=== PATIENT | female | born 1930 | race Caucasian/White ===

== ENCOUNTER 2016-03-13 11:22 | Emergency (ER) | payer OTHER, MEDICARE ==
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
[2016-03-13 11:48] VITALS: RESP 16; TEMP 97.5; O2SAT 95
[2016-03-13 11:51] LABS: % IMMATURE GRANULYOCYTES 0.9 % (0.0-1.1); ABSOLUTE IMMATURE GRANULOCYTES 0.09 10^3/uL (0.00-0.10); ADD DIFF? NO; ADD MORPH? NO; ADD SCAN? NO; ATYPICAL LYMPHOCYTE FLAG 10 (0-99); FRAGMENT RBC FLAG 50 (0-99); HEMATOCRIT 42.7 % (38.0-47.0); HEMOGLOBIN 13.9 g/dL (12.6-16.3); LEFT SHIFT FLG 0 (0-99); LIPEMIA HEMOLYSIS FLAG 80 (0-99); MEAN CELL HEMOGLOBIN CONCENTR. 32.6 g/dL (32.4-36.7); MEAN PLATELET VOLUME 10.8 fL (8.7-11.7); PLATELET CLUMPS FLAG 0 (0-99); RED BLOOD CELL COUNT 4.64 10^6/uL (4.18-5.33); RED CELL DISTRIBUTION WIDTH 14.3 % (11.5-15.2)
[2016-03-13 11:54] LABS: PLATELET COUNT 790 10^3/uL (150-400)
[2016-03-13 11:58] LABS: INR 3.27 (0.83-1.16); PROTIME(PATIENT) 33.8 SEC (12.0-15.0)
[2016-03-13 12:07] LABS: CARBON DIOXIDE 29 mEq/l (22-31); CHLORIDE 103 mEq/L (97-110); POTASSIUM 4.5 mEq/L (3.5-5.2); SODIUM 139 mEq/L (134-144)
[2016-03-13 12:08] LABS: ALANINE AMINOTRANSFERASE 29 IU/L (9-52); ALBUMIN 3.7 g/dL (3.5-5.0); ALKALINE PHOSPHATASE 100 IU/L (38-126); ANION GAP 7 mEq/L (8-16); ASPARTATE AMINOTRANSFERASE 30 IU/L (14-46); BILIRUBIN,TOTAL 0.8 mg/dL (0.1-1.4); CALCIUM 9.1 mg/dL (8.5-10.4); CREATININE 0.8 mg/dL (0.6-1.0); GLOMERULAR FILTRATION RATE > 60; GLUCOSE 82 mg/dL (70-100); TOTAL PROTEIN 5.7 g/dL (6.3-8.2)
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
[2016-03-13 13:06] LABS: PLATELET ESTIMATE INCREASED (ADEQ)
[2016-03-13 14:05] VITALS: BP 144/75; PULSE 81
== END 2016-03-13 13:40 | disposition home or self-care (01) ==
DX: S00.03XA Contusion of scalp, initial encounter (principal); S50.12XA Contusion of left forearm, initial encounter; S50.11XA Contusion of right forearm, initial encounter; I10 Essential (primary) hypertension; Z79.01 Long term (current) use of anticoagulants; Z79.82 Long term (current) use of aspirin; V49.09XA Driver injured in collision with other motor vehicles in nontraffic accident, initial encounter; Y92.410 Unspecified street and highway as the place of occurrence of the external cause; Y99.8 Other external cause status; Y93.89 Activity, other specified
CPT/HCPCS: G0390